=== PATIENT | male | born 1985 | race Caucasian/White ===

== ENCOUNTER 2021-12-11 17:52 | Emergency (ER) | payer OTHER ==
[~2021-12-11] VITALS: Ht 185.4 cm; Wt 86.4 kg
[2021-12-11] MEDS ORDERED: ACET-907 PO (18:01)
[2021-12-11] MEDS ORDERED: IBUPROFEN 800 MG TAB PO ONE (18:20)
[2021-12-11] MEDS ORDERED: IBUP80TA PO (19:09)
[2021-12-11 19:27] VITALS: BP 136/78
== END 2021-12-11 19:32 | disposition home or self-care (01) ==
LOC: M ED 17:52
DX: S43.121A Dislocation of right acromioclavicular joint, 100%-200% displacement, initial encounter (principal); W00.9XXA Unspecified fall due to ice and snow, initial encounter; Y92.9 Unspecified place or not applicable; Y93.9 Activity, unspecified; Y99.9 Unspecified external cause status

== ENCOUNTER 2024-04-15 20:53 | Emergency (ER) | payer OTHER ==
[~2024-04-15] VITALS: Ht 185.4 cm; Wt 90.3 kg
[~2024-04-15 20:53] MED LIST: ACET-907 PO; IBUP80TA PO
[2024-04-16] MEDS: AUGMENTIN 875 MG TAB PO ONE (01:24)
[2024-04-16] MEDS: LIDOCAINE 1% MDV 20ML VIAL SC ONE (01:24)
[2024-04-16] MEDS ORDERED: AMOX875T2 PO (01:44)
[2024-04-16 01:53] VITALS: BP 152/97; TEMP 98.6; O2SAT 97
== END 2024-04-16 01:55 | disposition home or self-care (01) ==
LOC: M ED 20:53
DX: S01.551A Open bite of lip, initial encounter (principal); W54.0XXA Bitten by dog, initial encounter; F10.10 Alcohol abuse, uncomplicated; Y92.009 Unspecified place in unspecified non-institutional (private) residence as the place of occurrence of the external cause; Y93.89 Activity, other specified; Y99.9 Unspecified external cause status; Z79.2 Long term (current) use of antibiotics